=== PATIENT | female | born 1985 | race Caucasian/White ===

== ENCOUNTER 2019-06-25 01:57 | Emergency (ER) | payer SELFPAY ==
[~2019-06-25] VITALS: Ht 162.6 cm; Wt 83.9 kg
[2019-06-25 02:01] VITALS: Ht 162.6 cm; Wt 83.9 kg
[2019-06-25 04:10] VITALS: BP 128/79
== END 2019-06-25 04:10 | disposition home or self-care (01) ==
LOC: ED 01:57
DX: L50.9 Urticaria, unspecified (principal)
CPT/HCPCS: Q0163

== ENCOUNTER 2019-11-21 19:18 | Emergency (ER) | payer OTHER ==
[~2019-11-21] VITALS: Ht 165.1 cm; Wt 85.4 kg
[2019-11-21 19:32] VITALS: Ht 165.1 cm; Wt 85.4 kg
[2019-11-21 21:12] VITALS: BP 139/83
== END 2019-11-21 21:12 | disposition home or self-care (01) ==
LOC: ED 19:18
DX: S39.012A Strain of muscle, fascia and tendon of lower back, initial encounter (principal); M79.10 Myalgia, unspecified site; V49.9XXA Car occupant (driver) (passenger) injured in unspecified traffic accident, initial encounter; Y93.I9 Activity, other involving external motion; Y92.413 State road as the place of occurrence of the external cause; Y99.8 Other external cause status